=== PATIENT | male | born 1970 ===

== ENCOUNTER 2024-09-11 19:56 | Emergency (ER) | payer SELFPAY ==
[~2024-09-11] VITALS: Ht 185.4 cm; Wt 63.0 kg
[2024-09-11 20:28] VITALS: BP 115/64; PULSE 88; RESP 16; TEMP 98.2; O2SAT 98
[2024-09-11] MEDS ORDERED: TETanus/Pertussis (Acell)/Diphther VAC/PF (Tdap-Adult) 0.5ml syringe IMVAC ONE (20:40)
== END 2024-09-11 20:41 ==
LOC: ER 19:58
DX: S00.81XA Abrasion of other part of head, initial encounter (principal); R04.0 Epistaxis; F10.129 Alcohol abuse with intoxication, unspecified; Y90.9 Presence of alcohol in blood, level not specified; X58.XXXA Exposure to other specified factors, initial encounter; Y93.89 Activity, other specified; Y92.89 Other specified places as the place of occurrence of the external cause; Y99.8 Other external cause status
CPT/HCPCS: 99283

== ENCOUNTER 2024-12-05 16:43 | Emergency (ER) | payer SELFPAY ==
--- NOTE | 2024-12-05 17:17 | Physician Documentation ---
History of Present Illness Stated Complaint: ABDOMINAL PAIN Time Seen by MD: 16:59 HPI 54-year-old male presents to the ER with a complaint of abdominal pain after ingesting fish given to him. States that he normally as take Dulcolax to have bowel movements and he has been having excessive diarrhea. Medication Reconciliation Allergies: Coded Allergies: No Known Allergies (Unverified , 09/11/24) Physical Exam Physical Exam General: Alert, no apparent distress. HEENT: PERRL, EOMI, no injection, moist mucous membranes. Neck: Full range of motion. Respiratory: Lungs clear, no respiratory distress. Chest: No accessory muscle use. Cardiovascular: Regular rate and rhythm, no murmurs. Gastrointestinal: Soft, nontender, nondistended. Bowels sounds present. Extremities: Normal range of motion, no deformity. Neurologic: Oriented x4. Psychiatric: Normal mood and affect. Skin: Normal color, warm and dry. No edema, no ecchymosis. Progress Results/Orders Results/Orders Orders - TIP PAEZ NP Urinalysis, Cult If Indicated (12/05/24 17:12) Cbc/Diff (12/05/24 17:12) BMP (12/05/24 17:12) Lipase (12/05/24 17:12) CMP (12/05/24 17:12) Medical Decision Making Findings Unable to complete full evaluation patient eloped Differential Dx:Considerations: Include: AAA, Angina/DE, Aortic dissection, Appendicitis, Bowel obstruction, Cholangitis, Cholelithasis, Constipation, Div erticular disease, Esophageal rupture, Esophagitis, Gastritis/PUD, Gastroenteritis, GI hemorrhage, Hernia, Hepatitis, Inflammatory BD, Ischemic bowel, Pancreatitis, Porphyria, Testicular torsion, Trauma, intraabdominal, Urinary obstruction, Urinary tract infection, Urolithiasis, Other Departure Disposition: 07 LEFT AWOL/ELOPED Impression: Primary Impression: Bleeding nose Condition: Stable Referrals: NO PRIMARY CARE PROVIDER (PCP) Signature Scribe Signature: c Attestation: The note accurately reflects work and decisions made by me.Tip Paez - PRANAV 12/05/24 18:24 TIP PAEZ NP December 05, 2024 17:17
== END 2024-12-05 17:34 | disposition left against medical advice (07) ==
LOC: ER 16:44
DX: R04.0 Epistaxis (principal); R19.7 Diarrhea, unspecified
CPT/HCPCS: 99281; 99283